=== PATIENT | female | born 1980 | race Two or more races ===

== ENCOUNTER 2025-09-27 08:01 | Emergency (ER) | payer MEDICAID, SELFPAY ==
[2025-09-27 08:20] VITALS: BP 125/84; PULSE 74; RESP 18; TEMP 36.7; O2SAT 96; BMI 33.6
--- NOTE | 2025-09-27 08:23 | XR_ITS ---
Examination: CT abdomen and pelvis without contrast. Coronal 3-D reconstructions. Sagittal 2-D reconstructions. Date and time of exam: September 27, 2025, 1042 hours, comparison 07/02/2021 INDICATIONS: Onset right-sided flank pain with nausea beginning 5 days ago CTDI: vol (mGy): 8.94 DLP: (mGycm): 445 Technique: Axial images of the abdomen have been obtained, 3 mm slice thickness Intravenous contrast material has not been administered. Low dose protocols were performed. One or more of the following dose reduction techniques were used; automated exposure control, adjustment of the mA and/or KV according to patient size, use of iterative reconstruction technique. Findings: No visualized liver or splenic lesion No gallstones No pancreatic or adrenal mass No renal or ureteral calculi, no hydronephrosis Aorta normal size Normal appendix No bowel obstruction Suspicious for 3.5 cm left adnexal cyst Anteverted uterus Contracted urinary bladder Moderate disc narrowing L5-S1 moderate osteopenia IMPRESSION: No renal or ureteral calculi, no hydronephrosis Normal appendix No bowel obstruction Recommend pelvic sonography to exclude 3.5 cm left adnexal cyst
--- NOTE | 2025-09-27 08:23 | PD.EDRME ---
Rapid Medical Screening Exam RME Arrival date/time: 09/27/25 08:01 45-year-old female with no known medical history presents to the emergency room with a chief complaint of right lower abdominal pain right upper quadrant abdominal pain and diarrhea x 3 days I have greeted and performed a focused initial assessment of this patient. A comprehensive ED assessment and evaluation of the patient, analysis of all test results, and completion of the medical decision making process will be conducted by additional ED providers. Chief Complaint: Abdominal Pain Time Seen by Provider: 09/27/25 08:14 Vital signs: Vital Signs Temperature 98.0 F 09/27/25 08:20 Pulse Rate 74 09/27/25 08:20 Respiratory Rate 18 09/27/25 08:20 Blood Pressure 125/84 09/27/25 08:20 Pulse Oximetry (%) 96 09/27/25 08:20 Oxygen Delivery Method Room Air 09/27/25 08:20 Vital signs reviewed by provider: Yes Exam: Right lower quadrant abdominal tenderness with palpation, right upper quadrant abdominal tenderness with palpation Strong and regular rhythm Clinical Impression: Appendicitis/cholelithiasis/cholecystitis/abdominal pain
[2025-09-27 09:14] LABS: Basophils # (Auto) 0.1 Thou/mm3 (0.0-0.2); Basophils % (Auto) 1 % (0-2.5); Eosinophils # (Auto) 0.5 Thou/mm3 (0.0-0.5); Eosinophils % (Auto) 5 % (0-10); Hematocrit 44.8 % (36.0-46.0); Hemoglobin 15.0 g/dL (12.0-16.0); Immature Granulocytes Auto 0.05 Thou/mm3 (0.00-0.00); Lymphocytes # (Auto) 2.1 Thou/mm3 (1.0-4.8); Lymphocytes % (Auto) 20 % (10-50); Mean Corpuscular HGB Conc 33.5 g/dl (31.0-37.0); Mean Corpuscular Hemoglobin 31.1 pg (25.0-35.0); Mean Corpuscular Volume 93 fL (80-100); Monocytes # (Auto) 0.9 Thou/mm3 (0.0-0.8); Monocytes % (Auto) 8 % (0-12); Neutrophils # (Auto) 6.9 Thou/mm3 (1.8-7.7); Neutrophils % (Auto) 66 % (37-80); Nucleated Red Blood Cell # 0.00 Thou/mm3 (0.00-0.00); Nucleated Red Blood Cell % 0 /100 WBC (0); Platelet Count 276 Thou/mm3 (140-440); RDW Standard Deviation 41.5 fL (36.4-46.3); Red Blood Count 4.82 Miln/mm3 (4.00-5.20); White Blood Count 10.5 Thou/mm3 (3.6-11.0)
[2025-09-27 09:28] LABS: Collection Type, Urine Clean Catch
[2025-09-27 09:35] LABS: Alanine Aminotransferase 24 U/L (10-49); Albumin, Serum 4.2 gm/dL (3.5-5.0); Albumin/Globulin Ratio 1.3 (1.2-2.2); Alkaline Phosphatase 86 U/L (46-116); Anion Gap 8 (7-16); Aspartate Amino Transferase 17 U/L (0-34); BUN/Creatinine Ratio 13 Ratio (12-20); Bilirubin,Total 0.5 mg/dL (0.3-1.2); Blood Urea Nitrogen 9 mg/dL (9-23); Calcium 9.5 mg/dL (8.3-10.6); Calcium (Corrected) 9.5 mg/dL (8.5-10.1); Carbon Dioxide 27.2 mMol/L (20.0-31.0); Chloride 107 mMol/L (98-107); Creatinine (Component) 0.7 mg/dL (0.6-1.3); Estimated Creatinine Clearance 99.5 mL/min (>60); Globulin 3.3 gm/dL (2.3-3.5); Glucose 89 mg/dL (74-106); Lipase 34 U/L (12-53); Osmolality,Calculated 280 (275-295); Potassium 3.5 mMol/L (3.4-5.1); Sodium 142 mMol/L (136-145); Total Protein 7.5 gm/dL (5.7-8.2); eGFR > 60 See Note
[2025-09-27 09:54] LABS: Bacteria,Urine Rare; Bilirubin,Urine Negative (Negative); Blood,Urine Trace (Negative); Clarity,Urine Turbid (Clear/Hazy); Color,Urine Yellow (Lt Yel-Yel); Glucose, Urine Negative (Negative); Ketones,Urine Negative (Negative); Leukocyte Esterase,Urine Positive (Negative); Nitrite,Urine Negative (Negative); PH,Urine 6.0 (5.0-7.0); Protein,Urine 1+ (Neg - Trace); RBC,Urine 5 /hpf (0-3); Specific Gravity,Urine 1.036 (1.001-1.035); Squamous Epithelial Cell,Urine 4 /hpf (0-5); Urobilinogen,Urine 2.0 mg/dL (0.0-1.0); WBC,Urine 37 /hpf (0-5)
[2025-09-27 09:58] LABS: HCG Qualitative,Urine Negative
--- NOTE | 2025-09-27 12:24 | PD.EDABDPN ---
ED Abdominal Pain RME/HPI General Chief Complaint: Abdominal Pain Stated complaint: RLQ ABD PAIN 10, DOES NOT FEEL MENTALLY STABLE Time seen by provider: 09/27/25 08:14 Arrival date/time: 09/27/25 08:01 RME / HPI RME / HPI narrative: 09/27/25 08:01 45-year-old female with no known medical history presents to the emergency room with a chief complaint of right lower abdominal pain right upper quadrant abdominal pain and diarrhea x 3 days I have greeted and performed a focused initial assessment of this patient. A comprehensive ED assessment and evaluation of the patient, analysis of all test results, and completion of the medical decision making process will be conducted by additional ED providers. DR. MENJIVAR MAIN ED EVALUATION 45 year old female with history of bipolar disorder (on Depakote and Seroquel she began 2 weeks ago) presents to the ED for evaluation of abdominal pain today. Reports the pain had been on/off over the last several days and had consulted with PCP. States her PCP diagnosed her with constipation and advised the take Dulcolax and a liquid laxative. States she took both the Dulcolax and half of the suggested dose of the liquid laxative causing her to have diarrhea and abdominal cramping pain. States her bowel habits have returned to normal though the abdominal pain persists. Described as aching in sensation that is located most to the right pelvic region with radiation to mid suprapubic region, rating as moderate. Accompanied by nausea. Patient also reports blood in her urine that beginning 3 days ago without any dysuria or urinary hesitancy. Denies fevers, chills, vomiting. Exam: Right lower quadrant abdominal tenderness with palpation, right upper quadrant abdominal tenderness with palpation Strong and regular rhythm Impression: Appendicitis/cholelithiasis/cholecystitis/abdominal pain Related Data Previous Rx's ?Medication ?Instructions ?Recorded aripiprazole 10 mg tablet (Abilify) 10 mg PO QDAY #30 tabs 03/10/22 ibuprofen 800 mg tablet (IBU) 800 mg PO TID PRN pain #30 tabs 03/31/22 benzonatate 100 mg capsule 100 mg PO TID PRN cough #30 caps 09/08/23 naproxen 500 mg tablet 500 mg PO BID PRN pain #30 tabs 09/08/23 alprazolam 0.25 mg tablet (Xanax) 0.25 mg PO QDAY PRN anxiety #6 tabs 11/14/23 albuterol sulfate 90 mcg/actuation 2 puff inhalation Q6H PRN 12/14/23 aerosol inhaler (Ventolin HFA) bronchospasm #6.7 grams montelukast 10 mg tablet 10 mg PO QDAY #30 tabs 12/14/23 (Singulair) promethazine-DM 6.25 mg-15 mg/5 mL 5 ml PO Q6H #120 mL 12/14/23 oral syrup cephalexin 500 mg capsule 500 mg PO Q12H UTI 5 days #10 caps 09/27/25 ondansetron 4 mg disintegrating 4 mg PO Q8H PRN nausea and 09/27/25 tablet vomiting #10 tabs Allergies Allergy/AdvReac Type Severity Reaction Status Date / Time morphine Allergy Severe ITCHING Verified 09/27/25 08:04 oxycodone Allergy Severe HIVES, Verified 09/27/25 08:04 ITCHING sulfamethoxazole (From Allergy Severe Hives Verified 09/27/25 08:04 Bactrim) trimethoprim (From Bactrim) Allergy Severe Hives Verified 09/27/25 08:04 Review of Systems Review of Systems Systems Reviewed: All systems reviewed, normal except as documented ED Exam Narrative Physical exam: Constitutional: Awake, alert, nontoxic, no acute distress HEENT: Normocephalic, atraumatic, extraocular movements intact. Neck: Supple CV: Regular rate and rhythm, no murmurs/rubs/gallops Lungs: Clear to auscultation BL, no respiratory distress. Abd: Soft, tenderness to the right suprapubic region, no rebound, no guarding, ND, no HSM noted to palpation Back: No CVA tenderness Extremities: No deformities, no edema noted Neuro: AAOx3, CN 2-12 GIBL, no acute neuro deficit noted. Skin: Warm, dry, intact Course Quality Measures none Orders Category Date Time Status CT abdomen pelvis wo con Stat Exams 09/27/25 08:23 Completed CBC Stat Lab 09/27/25 09:05 Completed CMP [Comprehensive Metabolic Panel] Stat Lab 09/27/25 09:05 Completed HCG Qualitative,Urine Stat Lab 09/27/25 09:20 Completed Lipase Stat Lab 09/27/25 09:05 Completed UA [Urinalysis] Stat Lab 09/27/25 09:20 Completed Urine Culture Stat Lab 09/27/25 09:20 Received Prochlorperazine Inj [Compazine Inj] Med 09/27/25 12:31 Discontinued 10 mg IM X1 ONE Vital Signs Vital signs: Vital Signs Temperature 98.0 F 09/27/25 08:20 Pulse Rate 74 09/27/25 08:20 Respiratory Rate 18 09/27/25 08:20 Blood Pressure 125/84 09/27/25 08:20 Pulse Oximetry (%) 96 09/27/25 08:20 Oxygen Delivery Method Room Air 09/27/25 08:20 Pulse ox is 96% on room air which is adequate. Abdominal Pain MDM MDM Narrative MDM Narrative:: Savannah Arenas am scribing for and in the presence of Dr. Menjivar. Patient data External records reviewed:: [facility] previous records Clinical information provided by:: patient Social determinants that could affect healthcare access:: mental health Patient has the following chronic illnesses:: Bipolar disorder, history of uterine fibroids How is presenting disease/condition affected by chronic disease/condition?: uneffected by Evaluation data The following diagnostics were reviewed and interpreted by me:: lab results and radiology exam(s) Lab and/or radiology exams considered but not ordered:: None Interpretation Summary: Ordering Physician: Wisam Banerjee Date of Service: 09/27/25 Procedure(s): CT abdomen pelvis wo con Accession Number(s): [id number] cc: Jordy Asher; Wisam Banerjee; Mateusz Kenney MD~ Examination: CT abdomen and pelvis without contrast. Coronal 3-D reconstructions. Sagittal 2-D reconstructions. Date and time of exam: September 27, 2025, 1042 hours, comparison 07/02/2021 INDICATIONS: Onset right-sided flank pain with nausea beginning 5 days ago CTDI: vol (mGy): 8.94 DLP: (mGycm): 445 Technique: Axial images of the abdomen have been obtained, 3 mm slice thickness Intravenous contrast material has not been administered. Low dose protocols were performed. One or more of the following dose reduction techniques were used; automated exposure control, adjustment of the mA and/or KV according to patient size, use of iterative reconstruction technique. Findings: No visualized liver or splenic lesion No gallstones No pancreatic or adrenal mass No renal or ureteral calculi, no hydronephrosis Aorta normal size Normal appendix No bowel obstruction Suspicious for 3.5 cm left adnexal cyst Anteverted uterus Contracted urinary bladder Moderate disc narrowing L5-S1 moderate osteopenia IMPRESSION: No renal or ureteral calculi, no hydronephrosis Normal appendix No bowel obstruction Recommend pelvic sonography to exclude 3.5 cm left adnexal cyst Dictated By: Mateusz Kenney MD Signed By: <Electronically signed by Mateusz Kenney MD in OV> 09/27/25 1120 Medications / Prescriptions Medications or Prescriptions considered but not ordered:: None Medication administrations:: Medication Administration History Discontinued Medications Prochlorperazine Edisylate (Prochlorperazine Inj 5 Mg/Ml Vial 2 Ml) 10 mg IM X1 ONE; Protocol Stop: 09/27/25 12:32 Last Admin: 09/27/25 13:01 Dose: 10 mg Documented By: MF See above Consultations Consultation(s) initiated? (list below): No Diagnosis Differential diagnosis abdominal pain: abdominal pain, acute appendicitis, calculus of kidney and other (UTI ) Most likely diagnosis given after review of the tests above:: UTI Admission Indicated Admission indicated?: not indicated Explain why admission is indicated or not indicated:: With no condition needing emergent intervention, there was no indication for admission. Admission Request Was there a request for admission?: No Disposition Plan Disposition Plan: Discharge Discharge Attestation Discharge Attestation: The patient and all family members were given an opportunity to ask questions and understood the discharge instructions. Discharge instructions specifically effects, indications for sooner follow up or return to the emergency department, and the expected course of current diagnosis. Patient condition: Stable Discharge Plan Plan Patient Disposition: HOME (Self Care) Patient condition on transfer: Stable Prescriptions/Referrals Prescriptions/Med Rec: New cephalexin 500 mg capsule 500 mg PO Q12H 5 Days Qty: 10 0RF ondansetron 4 mg tablet,disintegrating 4 mg PO Q8H PRN (Reason: nausea and vomiting) Qty: 10 0RF No Action aripiprazole [Abilify] 10 mg tablet 10 mg PO QDAY Qty: 30 1RF ibuprofen [IBU] 800 mg tablet 800 mg PO TID PRN (Reason: pain) Qty: 30 0RF benzonatate 100 mg capsule 100 mg PO TID PRN (Reason: cough) Qty: 30 0RF naproxen 500 mg tablet 500 mg PO BID PRN (Reason: pain) Qty: 30 0RF alprazolam [Xanax] 0.25 mg tablet 0.25 mg PO QDAY PRN (Reason: anxiety) Qty: 6 0RF promethazine-DM 6.25-15 mg/5 mL syrup 5 ml PO Q6H Qty: 120 0RF montelukast [Singulair] 10 mg tablet 10 mg PO QDAY Qty: 30 0RF albuterol sulfate [Ventolin HFA] 90 mcg/actuation HFA aerosol inhaler 2 puff inhalation Q6H PRN (Reason: bronchospasm) Qty: 6.7 0RF Referrals: Jordy Asher FNP [Primary Care Provider] - In 1 week Problem List Clinical Impression: Urinary tract infection, Lower abdominal pain Patient/Caregiver Discharge Instructions Education Materials: ED CYSTITIS Female Adult Additional Instructions: Some general health principles that can help you are the NEW START principles: Nutrition (eat a plant-based diet, avoiding meats in general, avoiding highly processed foods) Exercise (Daily exercise/walks as tolerated) Water (Drink adequate fresh water to maintain hydration, concentrating on water rather than on soda, coffee, tea, juice, etc for hydration) [place] (Spend time - 15-20 minutes or so with skin exposed in the felt hat inspector and packer and late evening sun for Vitamin D health benefits) [place] (Avoid alcohol, illicit drugs, caffeinated beverages, smoking, etc) Air (Deep breathing exercises in the early mornings in fresh air) Rest (Adequate rest at night, going to bed a few hours before midnight and avoiding all screens/television/loud music in the time right before going to bed, also avoiding heavy meals just prior to going to bed) Trust in God (Spend time daily in Bible study and prayer - health benefits in contemplation of God's true character) Additional resources that can benefit with many resources on mental health topics: www.[employer], look under resources and seminars (healing the mind, designed 4 more podcasts, etc) Another good website is www.[email or web address] Print Language: Mauritian Stand Alone Forms: Jaimie Award Info., Patient Portal Info Letter
[2025-09-27] MEDS: PROCHLORPERAZINE INJ 5 MG/ML VIAL 2 ML 10 MG IM (13:01)
== END 2025-09-27 15:35 | disposition home or self-care (01) ==
PROVIDERS: Nurse Practitioner Family; Emergency Provider Family Medicine; PCP Nurse Practitioner Family
DX: N39.0 Urinary tract infection, site not specified (principal); R10.31 Right lower quadrant pain; R10.A1 Flank pain, right side
CPT/HCPCS: 36415; 74176; 80053; 81001; 81025; 83690; 85025; 87077; 87086; 87186; 96372; 99283; J0780

== ENCOUNTER 2025-09-29 15:15 | Emergency (ER) | payer MEDICAID, SELFPAY ==
[2025-09-29 15:21] VITALS: BP 156/93; PULSE 85; RESP 18; TEMP 36.7; O2SAT 97
--- NOTE | 2025-09-29 15:26 | EDNOTE_ITS ---
ED Female Urogenital RME/HPI General Chief complaint: Urogenital-Female Stated complaint: BLOOD IN URINE Time Seen by Provider: 09/29/25 15:26 Arrival date/time: 09/29/25 15:15 45-year-old female presents to the department today for complaints of pelvic pain and dysuria Limitations: no limitations Related Data Previous Rx's ?Medication ?Instructions ?Recorded aripiprazole 10 mg tablet (Abilify) 10 mg PO QDAY #30 tabs 03/10/22 ibuprofen 800 mg tablet (IBU) 800 mg PO TID PRN pain # 30 tabs 03/31/22 benzonatate 100 mg capsule 100 mg PO TID PRN cough #30 caps 09/08/23 naproxen 500 mg tablet 500 mg PO BID PRN pain #30 t abs 09/08/23 alprazolam 0.25 mg tablet (Xanax) 0.25 mg PO QDAY PRN anxiety #6 tabs 11/14/23 albuterol sulfate 90 mcg/actuation 2 puff inhalation Q 6H PRN 12/14/23 aerosol inhaler (Ventolin HFA) bronchospasm #6.7 grams montelukast 10 mg tablet 10 mg PO QDAY #30 tabs 12/13 (Singulair) promethazine-DM 6.25 mg-15 mg/5 mL 5 ml PO Q6H #120 mL 12/14/23 oral syrup cephalexin 500 mg capsule 500 mg PO Q12H UTI 5 days #1 0 caps 09/27/25 ondansetron 4 mg disintegrating 4 mg PO Q8H PRN nausea and 09/27/25 tablet vomiting #10 tabs hydrocodone 5 mg-acetaminophen 325 1 tab PO BID PRN pa in #10 tabs 09/29/25 mg tablet Allergies Allergy/AdvReac Type Severity Reaction Status Date / Time morphine Allergy Severe ITCHING Verified 09/29/25 15:18 oxycodone Allergy Severe HIVES, Verified 09/29/25 15:18 ITCHING sulfamethoxazole (From Allergy Severe Hives Verified 09/29/25 15:18 Bactrim) trimethoprim (From Bactrim) Allergy Severe Hives Verified 09/29/25 15:18 Review of Systems Review of Systems Systems Reviewed: All systems reviewed, normal except as documented Constitutional Constitutional: Reports system reviewed and no additional complaints, except as documented, Denies fever(s) and Denies headache(s) Eyes Eyes: Reports system reviewed and no additional complaints, except as documented and Denies blurry vision ENT Ears, Nose, Mouth, and Throat: Reports system reviewed and no additional complaints, except as documented, Denies headache(s), Denies nasal congestion and Denies nasal discharge Cardiovascular Cardiovascular: Reports system reviewed and no additional complaints, except as documented, Denies chest pain and Denies dyspnea Respiratory Respiratory: Reports system reviewed and no additional complaints, except as documented, Denies chest congestion, Denies cough and Denies dyspnea Gastrointestinal Gastrointestinal: Reports system reviewed and no additional complaints, except as documented and Denies abdominal pain Genitourinary Genitourinary: Reports system reviewed and no additional complaints, except as documented, Reports dysuria and Reports pelvic pain Integumentary/Breasts Skin/Breast: Reports system reviewed and no additional complaints, except as documented and Denies rash Neurologic Neurologic: Reports system reviewed and no additional complaints, except as documented, Reports as per HPI and Denies headache(s) Past Medical History Past Medical History CARDIAC: Negative Cardiac Disorders or Congestive Heart Failure RESPIRATORY: Positive Asthma; Negative Chronic Obstructive Pulmonary Disease (COPD) GENITOURINARY: Negative Renal Disease ENDOCRINE: Negative Diabetes Mellitus Type 1 or Diabetes Mellitus Type 2 HEMATOLOGIC: Negative Sickle Cell Disease Social History SMOKING STATUS: Current every day smoker ED Exam General Limitations: Present no limitations General appearance: Present alert and in no apparent distress Head Head exam: Present atraumatic, normocephalic and normal inspection Eye Eye exam: Present normal appearance, PERRL and EOMI; Absent conjunctival injection ENT ENT exam: Present normal exam, normal oropharynx and mucous membranes moist Neck Neck exam: Present normal inspection, full ROM and trachea midline Chest Chest inspection: Present normal inspection and symmetric chest wall rise Respiratory Respiratory exam: Present normal lung sounds bilaterally; Absent respiratory distress Cardiovascular Cardiovascular exam: Present regular rate, normal rhythm and normal heart sounds Abdominal Exam Abdominal exam: Present soft and normal bowel sounds; Absent distention, tenderness, guarding, rebound, rigidity, Ramirez's sign or tenderness at McBurney's Point Abdominal tenderness: Absent RUQ or RLQ Extremities Exam Extremities exam: Present normal inspection and full ROM Back Exam Back exam: Present normal inspection and full ROM Neurological Exam Neurological exam: Present alert, oriented X3 and CN II-XII intact Psychiatric Psychiatric exam: Present normal affect and normal mood Skin Skin exam: Present warm, dry, intact and normal color Course Quality Measures none Orders Category Date Time Status HYDROcodone*/APAP 5/325 [[place] 5/325] Med 09/29/25 15:26 Discontinued 1 tab PO X1 ONE Lidocaine 1% Vial 20 ml [Xylocaine 1% 20 ML] Med 09/29/25 15:26 Discontinued 2.1 ml INFL X1 ONE cefTRIAXone [Rocephin] Med 09/29/25 15:26 Discontinued 1,000 mg IM X1 ONE Vital Signs Vital signs: Vital Signs Temperature 98.1 F 09/29/25 15:21 Pulse Rate 85 09/29/25 15:21 Respiratory Rate 18 09/29/25 15:21 Blood Pressure 156/93 H 09/29/25 15:21 Pulse Oximetry (%) 97 09/29/25 15:21 Oxygen Delivery Method Room Air 09/29/25 15:21 O2 saturation 97% room air within normal limits Urogenital - Female MDM Narrative MDM Narrative:: 45-year-old female presents to the department today for complaints of pelvic pain and dysuria On exam patient well-appearing does not appear look toxic no acute distress Patient had a full workup 2 days ago including lab work and CT scan Reviewed the patient lab work and CT scan Patient currently be treated for a UTI Patient does report some hematuria Patient given Rocephin here discharged with [place] patient is amenable to this plan I also reviewed the patient's CT scan which showed the patient had a cyst to be consistent with patient's pain as well Explained to the patient should her symptoms persist or worsen she is to return for reevaluation patient states understanding Patient data External records reviewed:: [facility] previous records Clinical information provided by:: patient Social determinants that could affect healthcare access:: substance use Patient has the following chronic illnesses:: See history How is presenting disease/condition affected by chronic disease/condition?: exacerbated by Evaluation data The following diagnostics were reviewed and interpreted by me:: other (specify) (N/A) Lab and/or radiology exams considered but not ordered:: Considered not ordered Interpretation Summary: N/A Medications / Prescriptions Medications or Prescriptions considered but not ordered:: Given Medication administrations:: Medication Administration History Discontinued Medications Hydrocodone Bitart/Acetaminophen (Hydrocodone/Apap 5/325 Tablet) 1 tab PO X1 ONE Stop: 09/29/25 15:27 Ceftriaxone Sodium (Ceftriaxone Sod Inj 1,000 Mg Vial) 1,000 mg IM X1 ONE Stop: 09/29/25 15:27 Lidocaine HCl (Lidocaine Hcl 1% 20 Ml Vial) 2.1 ml INFL X1 ONE Stop: 09/29/25 15:27 Given Consultations Consultation(s) initiated? (list below): No Diagnosis Urogenital Female Differential Diagnosis: urinary tract infection and cystitis Most likely diagnosis given after review of the tests above:: UTI Admission Indicated Admission indicated?: not indicated Admission Request Was there a request for admission?: No Disposition Plan Disposition Plan: Discharge Discharge Attestation Discharge Attestation: The patient and all family members were given an opportunity to ask questions and understood the discharge instructions. Discharge instructions specifically effects, indications for sooner follow up or return to the emergency department, and the expected course of current diagnosis. Patient condition: Stable Discharge Plan Plan Patient Disposition: HOME (Self Care) Discharge Disposition comment: stable Prescriptions/Referrals Prescriptions/Med Rec: New hydrocodone-acetaminophen 5-325 mg tablet 1 tab PO BID MDD 10mg PRN (Reason: pain) Qty: 10 0RF No Action aripiprazole [Abilify] 10 mg tablet 10 mg PO QDAY Qty: 30 1RF ibuprofen [IBU] 800 mg tablet 800 mg PO TID PRN (Reason: pain) Qty: 30 0RF benzonatate 100 mg capsule 100 mg PO TID PRN (Reason: cough) Qty: 30 0RF naproxen 500 mg tablet 500 mg PO BID PRN (Reason: pain) Qty: 30 0RF alprazolam [Xanax] 0.25 mg tablet 0.25 mg PO QDAY PRN (Reason: anxiety) Qty: 6 0RF promethazine-DM 6.25-15 mg/5 mL syrup 5 ml PO Q6H Qty: 120 0RF montelukast [Singulair] 10 mg tablet 10 mg PO QDAY Qty: 30 0RF albuterol sulfate [Ventolin HFA] 90 mcg/actuation HFA aerosol inhaler 2 puff inhalation Q6H PRN (Reason: bronchospasm) Qty: 6.7 0RF cephalexin 500 mg capsule 500 mg PO Q12H 5 Days Qty: 10 0RF ondansetron 4 mg tablet,disintegrating 4 mg PO Q8H PRN (Reason: nausea and vomiting) Qty: 10 0RF Problem List Clinical Impression: Acute cystitis, Right ovarian cyst Patient/Caregiver Discharge Instructions Education Materials: Understanding Urinary Tract ... Additional Instructions: Please follow up with your primary care doctor in the next 24-48hrs for any worsening symptoms return here immediately Print Language: Lithuanian Stand Alone Forms: Jaimie Award Info., Patient Portal Info Letter PA/METAL FABRICATING SHOP HELPER Supervising Physician PA/[employer] FAB[employer]ICATING SHOP HELPER Supervising Physician: Dr. haas
[2025-09-29] MEDS: HYDROcodone/APAP 5/325 TABLET 1 TAB PO (16:09)
[2025-09-29] MEDS: LIDOCAINE HCL 1% 20 ML VIAL 2.1 ML INFL (16:09)
[2025-09-29] MEDS: cefTRIAXone SOD INJ 1,000 MG VIAL 1000 MG IM (16:10)
== END 2025-09-29 17:29 | disposition home or self-care (01) ==
LOC: SERX 16:21
PROVIDERS: Emergency Provider Family Medicine
DX: N30.01 Acute cystitis with hematuria (principal); N83.201 Unspecified ovarian cyst, right side
CPT/HCPCS: 96372; 99282; J0696; J3490; A9270